=== PATIENT | male | born 2000 | race Two or more races ===

== ENCOUNTER 2021-04-12 19:42 | Emergency (ER) | payer OTHER ==
[~2021-04-12] VITALS: Ht 188 cm; Wt 87.5 kg
[2021-04-12 19:44] VITALS: BP 109/63
[2021-04-12] MEDS ORDERED: ACETAMINOPHEN/CODEINE#3 (300/30mg) TAB PO ONE (20:15)
[2021-04-12] MEDS ORDERED: ONDANSETRON ODT 4 MG TAB PO ONE (20:15)
== END 2021-04-12 21:30 | disposition home or self-care (01) ==
LOC: ER 19:44
DX: S39.012A Strain of muscle, fascia and tendon of lower back, initial encounter (principal); R11.10 Vomiting, unspecified; W17.89XA Other fall from one level to another, initial encounter; Y93.89 Activity, other specified; Y92.89 Other specified places as the place of occurrence of the external cause; Y99.8 Other external cause status
CPT/HCPCS: 72131; 99284; Q0162